=== PATIENT | female | born 1980 | race Caucasian/White ===

== ENCOUNTER 2021-06-15 10:34 | Outpatient (CLI) | payer BC | END 2021-06-15 10:35 | disposition home or self-care (01) | LOC: CSHMAMMO 10:34 | PROVIDERS: ATTEND Obstetrics & Gynecology | DX: Z12.31 Encounter for screening mammogram for malignant neoplasm of breast (principal); Z98.82 Breast implant status | CPT/HCPCS: 77063; 77067 ==

== ENCOUNTER 2024-02-10 09:40 | Outpatient (CLI) | payer BC | END 2024-02-10 09:41 | disposition home or self-care (01) | LOC: CSHMAMMO 09:40 | PROVIDERS: ATTEND Obstetrics & Gynecology | DX: Z12.31 Encounter for screening mammogram for malignant neoplasm of breast (principal); Z98.82 Breast implant status | CPT/HCPCS: 77063; 77067 ==